=== PATIENT | female | born 1945 | race Caucasian/White ===

== ENCOUNTER → 2017-10-13 | Day surgery (SDC) | payer MEDICARE ==
[~2017-10-13] MED LIST: ACTO5TAB; ALBU6.7H INH; AUGM875 PO; DARV PO; LACTATED RINGER'S 1000 ML INJ 1,000 ML ONE; ceFAZolin INJ 1,000 MG VIAL ONE
== END | disposition home or self-care (01) ==
LOC: ESDC 09:13
PROVIDERS: ATTEND Surgery Trauma Surgery
DX: R92.0 Mammographic microcalcification found on diagnostic imaging of breast (principal); Z53.9 Procedure and treatment not carried out, unspecified reason
CPT/HCPCS: G0463; J0690; J7120; 99211